=== PATIENT | female | born 1980 | race African-American/Black ===

== ENCOUNTER 2023-06-24 16:32 | Emergency (ER) | payer OTHER ==
[2023-06-24 16:49] VITALS: O2SAT 100
--- NOTE | 2023-06-24 17:25 | ED Physician Documentation ---
History of Present Illness - Stated complaint Stated Complaint: NECK PX - Chief complaint Chief Complaint: General - Additonal information Additional information: She is this is a 42-year-old female complaining of more than a year of intermit tent neck pain she states that occasionally she will have soreness in the right side of her neck into her right shoulder. Her partner has also noticed that she has had some soft tissue swelling in the right lateral neck and they wonder if this is connected. This is also been present for more than a year and has not grossly changed. She has no weakness or numbness no pain radiating past the shoulder. Also comes complains of intermittent heavy periods. She is not . She also complains of vaginal itching. The patient currently lives in [place], is here with her partner who lives on the [place], she is going to moving to would be at the end of the month. Review of Systems Musculoskeletal: reports: Neck pain Neurologic: denies: Focal weakness, Numbness PD PAST MEDICAL HISTORY - Past Medical History Past Medical History: No Other Past Medical History: miscarriage. - Past Surgical History Past Surgical History: No - Present Medications Home Medications: Ambulatory Orders Medication Instructions Recorded Confirmed No Known Home Medications 06/24/23 06/24/23 - Allergies Allergies/Adverse Reactions: Allergies Allergy/AdvReac Type Severity Reaction Status Date / Time Quinolones Allergy Itching Verified 06/24/23 17:09 - Social History Does the pt smoke?: No Smoking Status: Never smoker PD ED PE NORMAL - General General: Alert and oriented X 3 - HEENT HEENT: Other (She has no midline cervical spine tenderness. She has a mobile squishy soft tissue swelling near her right trapezius muscle but feels consist ent for a lipoma. This is nontender.) - Extremities Extremities: No deformity - Neuro Neuro: No motor deficit, No sensory deficit Results - Vitals Vitals: Vital Signs - 24 hr 06/24/23 16:42 Temperature 36.7 C Heart Rate 56 L Respiratory 16 Rate Blood Pressure 127/84 H O2 Saturation 100 PD Medical Decision Making - ED course ED course: Will do right now patient presents with longstanding neck pain. This appears to be musculoskeletal. She also has some soft tissue swelling which appears to be a lipoma. She wonders if these are related. Is certainly possible that her lipoma could be compressing some of her cervical nerves but her she is neurologically intact and has no indication for emergent neuroimaging today. She also has a litany of other complaints including occasional heavy periods and vaginal itching. These would be most appropriately managed by primary care physician. She is in the process of moving to [facility] to be with her partner from [place]. Distally happening at the end of the month. I will give her referrals for primary care locally. She will take ibuprofen in the meantime Departure - Departure Disposition: 01 Home, Self Care Clinical Impression: Cervicalgia Lipoma Qualifiers: Lipoma location: neck Qualified Code(s): D17.0 - Benign lipomatous neoplasm of skin and subcutaneous tissue of head, face and neck Instructions: ED Neck Pain No Trauma Comments: She is your neck pain is likely on the basis of eyestrain, worst-case scenario could be that this could be a pinched nerve or cervical disc herniation. At any rate you are stable for outpatient follow-up. Now that you are going to moved to the [place] we will give you a list of PCPs to follow-up with here. The swelling that you noticed is by all appearances, a benign fatty growth called a lipoma. Should this grow or become more worrisome more acutely we could do something more urgently with it otherwise this is also safe to follow-up with your primary care physician once he moved to the [place]. For the dysmenorrhea I recommend taking ibuprofen 600 mg every 6 hours as also help with your neck pain. And again, your primary care physician that we will refer you to to help with this problem as well. Forms: PCP List
[2023-06-24 17:50] VITALS: BP 122/82
== END 2023-06-24 17:46 | disposition home or self-care (01) ==
LOC: EDBD → ED 16:32
DX: M54.2 Cervicalgia (principal); D17.0 Benign lipomatous neoplasm of skin and subcutaneous tissue of head, face and neck
CPT/HCPCS: 99282; 99283

== ENCOUNTER 2023-06-29 08:00 | Outpatient (CLI) | payer OTHER ==
[2023-06-29 21:36] LABS: BACTERIAL VAGINOSIS DNA POSITIVE (NEGATIVE); CANDIDA GLABRATA DNA NEGATIVE (NEGATIVE); CANDIDA GROUP DNA POSITIVE (NEGATIVE); CANDIDA KRUSEI DNA NEGATIVE (NEGATIVE); TRICHOMONAS VAGINALIS DNA NEGATIVE (NEGATIVE)
== END 2023-06-29 23:59 | disposition home or self-care (01) ==
LOC: LAB.N 08:00
PROVIDERS: ATTEND Physician Assistant Medical
DX: L29.8 Other pruritus (principal)
CPT/HCPCS: 81514

== ENCOUNTER 2023-07-12 16:47 | Outpatient (CLI) | payer OTHER ==
--- NOTE | 2023-07-13 06:41 | Ultrasound Report ---
PROCEDURE: Pelvic w/Transvaginal INDICATIONS: LOWER ABD PAIN TECHNIQUE: Real-time scanning was performed of the pelvic organs, with image documentation. Additional endovagi nal scanning was necessary due to incomplete visualization of the adnexal and endometrial structures by transabdominal scanning. COMPARISON: None. FINDINGS: Uterus: Uterus is anteverted and at the upper limits of normal in size at 9.8 x 4.3 x 5.8 cm. The m yometrium is homogeneous. The endometrium measures 6.4 mm in combined thickness. There is a right a nterior subserosal focus of heterogeneous echogenicity measuring 4.0 x 2.9 x 3.7 cm. A right anterior intramural focus is present measuring 1.9 x 1.4 x 1.5 cm. Ovaries: The right ovary measures 4.7 x 2.2 x 4.2 cm, with a calculated ovarian volume of 23 cc. Th e left ovary measures 3.9 x 1.2 x 2.7 cm, with a calculated ovarian volume of 6.8 cc. Complex cysts a re present within the right ovary the largest measuring 2.3 cm. Other: No pathologic free abdominal or pelvic fluid. IMPRESSION: Uterine foci of heterogeneous echogenicity most suggestive of fibroids. Complex right ovarian cyst possibly representing involuting hemorrhagic cyst. Reviewed by: Consuelo Richardson MD on 07/13/2023 6:40 AM PDT Approved by: Consuelo Richardson MD on 07/13/2023 6:40 AM PDT Station ID: [id number]
== END 2023-07-12 16:48 | disposition home or self-care (01) ==
LOC: DI 16:47
PROVIDERS: ATTEND Physician Assistant Medical
DX: R93.89 Abnormal findings on diagnostic imaging of other specified body structures (principal); N83.201 Unspecified ovarian cyst, right side

== ENCOUNTER 2023-08-25 14:04 | Emergency (ER) | payer OTHER ==
[2023-08-25 14:38] VITALS: O2SAT 100
--- NOTE | 2023-08-25 15:00 | ED Physician Documentation ---
History of Present Illness - Stated complaint Stated Complaint: NECK PX/BACK PX/BODY PX - Chief complaint Chief Complaint: General - History obtained from History obtained from: Patient - Additonal information Additional information: She has chronic neck pain. Hurts every day. It is in the middle of the neck and radiating towards the posterior right shoulder. She has taken NSAIDs and Tylenol without relief. Never had any workup or physical therapy or anything like that for it. PD PAST MEDICAL HISTORY - Past Medical History Past Medical History: Yes Cardiovascular: None Respiratory: None Neuro: Headaches Endocrine/Autoimmune: None GI: None DONOR PROCESSOR: None : None HEENT: None Psych: None Musculoskeletal: Chronic back pain Derm: None - Past Surgical History Past Surgical History: No - Present Medications Home Medications: Ambulatory Orders Medication Instructions Recorded Confirmed Cyclobenzaprine [Flexeril] 10 mg PO TID PRN #20 tablet 08/25/23 - Allergies Allergies/Adverse Reactions: Allergies Allergy/AdvReac Type Severity Reaction Status Date / Time Quinolones Allergy Itching Verified 08/25/23 14:16 - Social History Does the pt smoke?: No Smoking Status: Never smoker Does the pt have substance abuse?: No - Immunizations Immunizations: Other immun not current - POLST Patient has POLST: No PD ED PE NORMAL - Vitals Vital signs reviewed: Yes - General General: Alert and oriented X 3, No acute distress - HEENT HEENT: PERRL, EOMI - Neck Neck: Supple, no meningeal sign, No bony TTP - Extremities Extremities: No deformity, No tenderness to palpate, Normal ROM s pain, Other (Normal equal bilateral [employer] strength, thumb extension, interosseous strength, and flexion extension at the wrist. 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 Relevant Findings:: Final report received, EMP independent interpretation of test PD Medical Decision Making - ED course ED course: She is presents with chronic neck pain. She is never been imaged so seems reasonable to do so today and had a CT scan which was unremarkable. He does seem muscular though and she was counseled on PCP follow-up with presumed referral for physical therapy and will start Flexeril. Departure - Departure Disposition: Home, Self Care Clinical Impression: Cervicalgia Condition: Good Record reviewed to determine appropriate education?: Yes Instructions: ED Neck Pain No Trauma Prescriptions: Cyclobenzaprine [Flexeril] 10 mg PO TID PRN #20 tablet PRN Reason: Spasms Comments: The CT scan of your neck was normal and given the location of your pain I do suspect it is muscular. Call your doctor to arrange a follow-up appointment, make the next available appointment. In the interim, return anytime if worse or if new symptoms develop. Forms: PCP List Discharge Date/Time: 08/25/23 15:50
[2023-08-25] MEDS: CYCLOBENZAPRINE 10 MG TABLET PO STA (15:03)
--- NOTE | 2023-08-25 15:41 | CT Report ---
PROCEDURE: Cervical Spine WO INDICATIONS: cervicalgia TECHNIQUE: Noncontrast 3 mm thick sections acquired from the skull base to the T4 level. Sagittal and coronal r eformats were then constructed. For radiation dose reduction, the following was used: automated exp osure control, adjustment of mA and/or kV according to patient size. COMPARISON: None. FINDINGS: Image quality: Excellent. Bones: No fractures or dislocations. Visualized superior ribs are intact. Soft tissues: Prevertebral soft tissues are normal in thickness. No paravertebral hematomas. No ap ical pneumothoraces. Subcentimeter left thyroid nodule. IMPRESSION: No osseous spinal canal or foraminal narrowing. Reviewed by: Dino Junior MD on 08/25/2023 2:40 PM AKJD Approved by: Dino Junior MD on 08/25/2023 2:40 PM AKJD Station ID: [id number]
[2023-08-25 15:52] VITALS: BP 112/88
== END 2023-08-25 15:50 | disposition home or self-care (01) ==
LOC: ED 14:04
DX: M54.2 Cervicalgia (principal); M25.511 Pain in right shoulder
CPT/HCPCS: 72125; 99284; A9270

== ENCOUNTER 2023-09-20 19:17 | Outpatient (CLI) | payer OTHER ==
--- NOTE | 2023-09-21 09:54 | Ultrasound Report ---
PROCEDURE: Soft Tissue Head or Neck INDICATIONS: MASS TECHNIQUE: Real-time scanning was performed of the neck, with image documentation. COMPARISON: None FINDINGS: Targeted ultrasound of the region of concern demonstrates a fat-containing, encapsulated mass measuri ng 3.0 x 1.4 x 2.9 cm. IMPRESSION: Ultrasound of the region of concern demonstrates a benign lipoma. Reviewed by: David Agarwal MD on 09/21/2023 9:52 AM PDT Approved by: David Agarwal MD on 09/21/2023 9:52 AM PDT Station ID: [id number]
== END 2023-09-20 19:18 | disposition home or self-care (01) ==
LOC: DI 19:17
PROVIDERS: ATTEND Nurse Practitioner Family
DX: D17.0 Benign lipomatous neoplasm of skin and subcutaneous tissue of head, face and neck (principal)

== ENCOUNTER 2023-11-26 08:00 | Outpatient (CLI) | payer OTHER ==
[2023-11-26 17:30] LABS: BILIRUBIN,URINE NEGATIVE (NEGATIVE); GLUCOSE, URINE (UA) NEGATIVE (NEGATIVE); KETONES,URINE (UA) 15 mg/dL (NEGATIVE); LEUKOCYTE ESTERASE, URINE NEGATIVE (NEGATIVE); NITRITE,URINE NEGATIVE (NEGATIVE); OCCULT BLOOD,URINE NEGATIVE (NEGATIVE); PH,URINE 5.5 PH (5.0-7.5); PROTEIN,URINE NEGATIVE (NEGATIVE); UROBILINOGEN,URINE 0.2 (NORMAL) E.U./dL (NORMAL)
[2023-11-26 17:35] LABS: CLARITY,URINE CLOUDY (CLEAR)
[2023-11-26 17:52] LABS: AMORPHOUS SEDIMENT,UR Marked /LPF; RBC,URINE 0-5 /HPF (0-5); SQUAMOUS EPITHELIAL CELL,UR MOD Squamous (<= Few); WBC,URINE 0-3 /HPF (0-5)
[2023-11-26 17:59] LABS: BACTERIA,URINE None Seen /HPF (None Seen)
== END 2023-11-26 23:59 | disposition home or self-care (01) ==
LOC: LAB.WC 08:00
PROVIDERS: ATTEND Obstetrics & Gynecology
DX: Z34.90 Encounter for supervision of normal pregnancy, unspecified, unspecified trimester (principal)
CPT/HCPCS: 81001; 87086

== ENCOUNTER 2023-12-05 08:00 | Outpatient (CLI) | payer OTHER ==
[2023-12-05 22:52] LABS: CHLAMYDIA TRACHOMATIS DNA NEGATIVE (NEGATIVE); NEISSERIA GONORRHOEAE DNA NEGATIVE (NEGATIVE); TRICHOMONAS VAGINALIS DNA NEGATIVE (NEGATIVE)
== END 2023-12-05 23:59 | disposition home or self-care (01) ==
LOC: LAB.WC 08:00
PROVIDERS: ATTEND Obstetrics & Gynecology
DX: Z11.3 Encounter for screening for infections with a predominantly sexual mode of transmission (principal)
CPT/HCPCS: 87491; 87591; 87661

== ENCOUNTER 2023-12-12 18:32 | Outpatient (CLI) | payer OTHER ==
--- NOTE | 2023-12-13 20:03 | Ultrasound Report ---
PROCEDURE: OB 1st Trimester INDICATIONS: POSITIVE TEST OUTSIDE/PRIOR DATING DATA: Last menstrual period (LMP): 09/25/2023. LMP-based estimated date of delivery (KAI): 07/01/2024. First dating scan (date and location): 12/12/2023. Estimated date of delivery (KAI) from first dating scan: 07/10/2024. TECHNIQUE: Real-time scanning was performed of the fetus and maternal pelvic organs with image docum entation. COMPARISON: None FINDINGS: Heart rate: 176 bpm. Embryo: Naselle-rump length measures 3.0 cm corresponding to a 9 week 6 day gestation. Other: Subchronic bleed measures 2.3 x 1.0 x 3.3 Measurement variability in dating: +/- 4 weeks by LMP, +/- 7 days by mean sac diameter (use before 6 weeks gestation if crown-rump length not able to be measured), +/- 5 days by crown-rump length (6-12 weeks gestation). Maternal organs: Left corpus luteum cyst. Uterine fibroids noted IMPRESSION: Single live intrauterine consistent with 9 week 6 day gestation. Subchorionic bleed Reviewed by: Yony Gonzales MD on 12/13/2023 7:02 PM LEA Approved by: Yony Gonzales MD on 12/13/2023 7:02 PM LEA Station ID: [id number]
== END 2023-12-12 18:33 | disposition home or self-care (01) ==
LOC: DI 18:32
PROVIDERS: ATTEND Obstetrics & Gynecology
DX: Z34.91 Encounter for supervision of normal pregnancy, unspecified, first trimester (principal)

== ENCOUNTER 2024-07-08 13:45 | Inpatient (IN) ==
[2024-07-08] MEDS ORDERED: hydrALAZINE INJ 20 MG/ML VIAL IVP PRN ×2 (14:28)
[2024-07-08] MEDS ORDERED: NIFEdipine 10 MG CAPSULE PO PRN (14:28)
[2024-07-08] MEDS ORDERED: CARBOPROST TROMETHAMINE 250 MCG/ML VIAL IM PRN (14:28)
[2024-07-08] MEDS ORDERED: LACTATED RINGERS 1,000 ML IV PRN (14:28)
[2024-07-08] MEDS ORDERED: LABETALOL 20 MG/4 ML SYRINGE IVP PRN ×3 (14:28)
[2024-07-08] MEDS ORDERED: lidocaine 1% 20 ML MDV ID PRN (14:28)
[2024-07-08] MEDS ORDERED: OXYTOCIN 10 UNIT/ML VIAL IM PRN (14:29)
[2024-07-08] MEDS ORDERED: ONDANSETRON ODT 4 MG TABLET TL PRN (14:29)
[2024-07-08] MEDS ORDERED: OXYTOCIN/SODIUM CHLORIDE 500 ML IV PRN (14:29)
[2024-07-08] MEDS ORDERED: METHYLERGONOVINE 0.2 MG/ML VIAL IM PRN (14:29)
[2024-07-08] MEDS ORDERED: miSOPROStoL 200 MCG TABLET BC PRN (14:29)
[2024-07-08] MEDS ORDERED: TRANEXAMIC ACID IN NACL 1,000 MG/100 ML BAG IV PRN (14:29)
[2024-07-08] MEDS ORDERED: SODIUM CHLORIDE FLUSH 0.9% 10 ML SYRINGE IVP PRN (14:29)
[2024-07-08] MEDS ORDERED: ONDANSETRON 4 MG/2 ML VIAL IVP PRN (14:29)
--- NOTE | 2024-07-08 14:48 | PHARMACY PROGRESS NOTE ---
Best Possible Medication History Admit Date and Time: 07/08/24 [id number] Home Medications Medication Instructions Recorded Confirmed Type No Known Home Medications 07/08/24 07/08/24 History Processed by: Pharmacy (Medication reconciliation completed by Corporate Responsibility OfficerSherri) Medications reviewed in ED?: No Medication History completed: Yes Patient Interview: Completed Secondary Source(s): Insurance records [facility] Statement: As the person ultimately responsible for medication therapy, providers are able to order a medication from an existing home medication list in [facility] via the "Reconcile Routine" prior to Confirmation of that medication by office support specialist. Such practice is discouraged except when the physician, in their clinical judgment, deems that a medical need exists for a medication without regard to previous use.
[2024-07-08 14:50] LABS: PARTIAL THROMBOPLASTIN TIME 20.8 secs (24.9-33.3)
[2024-07-08 14:52] LABS: ALBUMIN 3.5 g/dL (3.2-5.5); ALBUMIN/GLOBULIN RATIO 1.1 (1.0-2.2); BILIRUBIN,TOTAL 0.3 mg/dL (0.2-1.0); CALCIUM 9.4 mg/dL (8.5-10.3); CREATININE 0.9 mg/dL (0.6-1.3); POTASSIUM 4.1 mmol/L (3.5-4.5); TOTAL PROTEIN 6.8 g/dL (6.4-8.9)
[2024-07-08 14:55] LABS: INR 0.9 (0.8-1.2); PT - PROTHROMBIN TIME 10.3 secs (9.9-12.6)
[2024-07-08 15:10] LABS: BASOPHILS % (AUTO) 0.3 %; EOSINOPHILS % (AUTO) 0.4 %; HCT - HEMATOCRIT 35.3 % (37.0-47.0); HGB - HEMOGLOBIN 11.2 g/dL (12.0-16.0); LYMPHOCYTES % (AUTO) 19.9 %; MEAN CORPUSCULAR HEMOGLOBIN 24.3 pg (27.0-31.0); MEAN CORPUSCULAR HGB CONC 31.7 g/dL (32.0-36.0); MEAN CORPUSCULAR VOLUME 76.7 fL (81.0-99.0); MONOCYTES % (AUTO) 10.2 %; NEUTROPHILS % (AUTO) 68.8 %; RED CELL DISTRIBUTION WIDTH 17.2 % (12.0-15.0); WHITE BLOOD COUNT 7.4 x10^3/uL (4.8-10.8)
[2024-07-08 16:08] LABS: PLATELET ESTIMATE, MANUAL DECREASED (<130,000) (NORMAL); PLATELET MORPHOLOGY 2+ LARGE PLATELETS (NORMAL); RBC MORPHOLOGY (MULTIPLE) NORMAL APPEARANCE (NORMAL)
[2024-07-08 16:09] LABS: ABNORMAL LYMPHS % (MANUAL) 0 %; BAND NEUTROPHILS % (MANUAL) 0 %; DIFFERENTIAL COMMENT MANUAL DIFFERENTIAL; EOSINOPHILS # (MANUAL) 0.1 10^3/uL (0-0.7); LYMPHOCYTES # (MANUAL) 1.6 10^3/uL (1.5-3.5); LYMPHOCYTES % (MANUAL) 22 %; MONOCYTES # (MANUAL) 0.2 10^3/uL (0.0-1.0); NEUTROPHILS # (MANUAL) 5.4 10^3/uL (1.5-6.6)
[2024-07-08 16:19] LABS: CREATININE,URINE 75.4 mg/dL; PROTEIN/CREATININE RATIO,URINE 0.5 (<=0.2)
--- NOTE | 2024-07-08 21:32 | HISTORY & PHYSICAL EXAMINATION ---
Admit History Visit Reason Visit Reason: Other (Induction of labor) Smoking Status: Never smoker Other Maternal History Other Maternal History: HPI: Esperanza is a 43 yo at 39w5d who is admitted for IOL in the setting of AMA. Reports overall feeling well today. She reports very irregular contractions, denies loss of fluid, vaginal bleeding. Reports good movement. She denies headache, vision changes, upper abdominal pain. monitoring form, copied from record: LMP: 09/25/2023 KAI by LMP: 07/01/2024 US: 12/12/2023 @ 9+6 NOT c/w LMP FINAL KAI: 07/10/2024 by US Problems: Cervical Incompetence: Delivery at [facility] at 20 weeks. Cervical shortening prolapsed membranes, developed chorio and then PPROM. Labor augmented with misoprstol, placental path confirmed chorio. - s/p Kat cerclage on 01/13; Removed at 36 weeks. AMA: -Aspirin to start between 12-16 weeks. - [id number] neg, female - [facility] recommmends weekly NST/BPP @ 36wk, ordered. Thrombocytopenia - Plt 88 on 01/01/25 -> 84 on 05/04/24. Repeat ordered 05/21. Pre- Weight:197.4 BMI: 35.66 Blood type: AB+ Rh: + Antibody: ordered 05/06 CBC: PLT 88 HCT 32.6 HGB 10.6 RUB: 05/04 immune VZV: 05/04 NOT immune HBsA/10 neg HepC: pending RPR/AB-EIA: HIV: 05/04 NR PAP:09/28/22 normal GC/CT: Negative HSV:denies in self and partner Genetic testing: Ordered 12/03 Covid: vaccinated RSV 05/21/24 mls FAS: Feb. 3 at [facility] ([facility]) EFW 55%tile. Placenta posterior. Prominent maternal uterine vasculature vs placental venous sinus extending to internal os. Noted. Normal cervical length. Cerclage in Situ. Anterior right lateral exophytic fibroid (size not given) Growth US 04/21/24 @ 28w4d EFW 47%tile, posterior placenta, normal VALERIA. No vasa previa seen. 50gm OGCT: 128 3HR GTT: TDAP:04/23 Breast Pump:04/23 3rd trimester CBC: 10.9/34.0 84 RPR: NR GBS: Negative at MFM Delivery plan: IOL scheduled for 07/08 at 8am Contraception: declines PE: Vitals signs reviewed in [facility] Gen: NAD CV: RRR Resp: non labored respirations Abd: gravid, non tender. EFW 3600g Ext: trace pedal edema, no evidence of DVT SVE: 2/70/-2 We discussec placement of cook balloon for cervical ripening, she did agree to proceed. Speculum was used to visualize cervix and cook balloon placed, 60/60, without difficulty. Speculum removed. She did tolerate very well. Bedside US: cephalic presentation confirmed monitoring: FHTs: 130s bpm baseline, + accel, mod variability, intermittent late decelerations [place]: irregular FHTs: Cat 2 Labs: CBC, CMP, T&S, PT, PTT reviewed. Platelet count was reviewed with pathologist, unable to provide exact count but estimates approximately at 100,000. A/P: Esperanza is a 43 yo at 39w5d who is admitted for IOL: - AMA - Thrombocytopenia - Preeclampsia without severe features - GBS neg - Varicella nonimmune - IOL started with cook balloon, plan to remove after 12 hours. - Platelet count in current has ranged from 76-88. Lab was unable to obtain automated count on admission, but platelets estimated to be 100,000 on manual count. Discussed with anesthesia, currently would be a candidate for neuraxial anesthesia. Platelets ordered in case of need for transfusion. I discussed with Esperanza that if platelets were to drop below 80,000, may not be a candidate for neuraxial anesthesia and in the case of delivery, would require intubation. Expressed understanding. At this time, undecided about epidural. - BPs currently normal to mild range. Asymptomatic for preeclampsia. Protein:creatinine ratio elevated. Remainder of preeclampsia labs are currently normal range (with exception of platelets as noted above). Will plan to repeat labs tomorrow. Maureen Xiong MD HPI Current : Vital Signs Temperature 98.2 F 07/08/24 13:53 Pulse Rate 59 L 07/08/24 13:53 Respiratory Rate 17 07/08/24 13:53 Blood Pressure 142/86 H 07/08/24 13:53 Meds/Allgy Home Medications Ambulatory Orders Medication Instructions Recorded Confirmed No Known Home Medications 07/08/24 07/08/24 Allergies Allergies Allergy/AdvReac Type Severity Reaction Status Date / Time Quinolones Allergy Itching Verified 07/02/24 12:59 PFSH Active Problems All Active Problems (Updated 05/21/24 @ 12:48 by Maureen Xiong MD) Advanced maternal age (AMA), 40 years or greater (Acute) Alpha thalassemia (Chronic) Anemia affecting (Acute) Cervical cerclage suture present (Acute) Cervical incompetence affecting management of mother, antepartum (Acute) Elderly multigravida (Acute) Low ferritin level (Acute) Microcytosis (Acute) Sickle cell trait (Chronic) Supervision of high risk in third trimester (Acute) Thrombocytopenia (Acute) Thrombocytopenia affecting (Acute) Medical History Medical History (Updated 05/21/24 @ 12:48 by Maureen Xiong MD) Miscarriage at 8 to 28 weeks gestation Surgical History Surgical History (Updated 05/06/24 @ 15:34 by Vashti Carey MD) History of cervical cerclage Family History Family History (Updated 01/08/24 @ 09:52 by Umm Calvert LPN) Sister High blood pressure Mother High blood pressure Social History Social History Smoking Status: Never smoker Do you vape?: No Relationship: Do you feel safe in your home environment?: Yes Suffered physical, verbal, emotional, or financial abuse?: No POLST Patient has POLST: No Physical Abdominal Exam Vital Signs: Temp Pulse Resp BP 98.2 F 59 L 17 142/86 H 07/08/24 13:53 07/08/24 13:53 07/08/24 13:53 07/08/24 13:53 Plan for Labor Plan For Labor I expect patient to be DC'd or transferred within 96 hours.: Yes Conclusion/Plan Lab Results 07/08/24 16:39 07/08/24 14:19
[2024-07-08] MEDS: SODIUM CHLORIDE FLUSH 0.9% 10 ML SYRINGE IVP SCH (22:00)
[2024-07-08] MEDS ORDERED: fentaNYL 100 MCG/2 ML VIAL IVP PRN (22:15)
--- NOTE | 2024-07-08 22:41 | ANESTHESIA PROCEDURE NOTE ---
Pre-Anesthesia VS, & Labs Diagnosis Surgical Diagnosis:: 39/4 weeks AMA for IOL, hx thromocytopenia Procedure Procedure: Discussed the options of labor epidural or spinal anesthetic for section, consent not signed Vitals Vital Signs: Temp Pulse Resp BP 36.8 C 59 L 17 142/86 H 07/08/24 13:53 07/08/24 13:53 07/08/24 13:53 07/08/24 13:53 Height (in): 5 ft 3 in Weight (kg): 97 kg Body Mass Index: 37.8 BMI Classification: Obese NPO Last Fluid Intake: clears Is Patient ?: Yes Estimated Due Date:: 07/08/24 Lab Results Current Lab Results: Laboratory Tests 07/08/24 16:39: Plt Count 07/08/24 15:00: WBC 7.4, RBC 4.60, Hgb 11.2 L, Hct 35.3 L, MCV 76.7 L, MCH 24.3 L, MCHC 31.7 L, RDW 17.2 H, Plt Count , Neut # (Auto) Not Reportable, Lymph # (Auto) Not Reportable, [place] # (Auto) Not Reportable, Eos # (Auto) Not Reportable, Baso # (Auto) Not Reportable, Absolute Nucleated RBC Not Reportable, Total Counted 100, Band Neuts % (Manual) 0, Abnorm Lymph % (Manual) 0, Nucleated RBC % Not Reportable, Neutrophils # (Manual) 5.4, Lymphocytes # (Manual) 1.6, Monocytes # (Manual) 0.2, Eosinophils # (Manual) 0.1, Basophils # (Manual) 0.0, Differential Comment MANUAL DIFFERENTIAL, Platelet Estimate DECREASED (<130,000), Platelet Morphology 2+ LARGE PLATELETS, RBC Morph Micro Appear NORMAL APPEARANCE 07/08/24 14:19: PT 10.3, INR 0.9, APTT 20.8 L, Sodium 136, Potassium 4.1, Chloride 106, Carbon Dioxide 24, Anion Gap 6.0, BUN 11, Creatinine 0.9, E stimated GFR (MDRD) 83 L, Glucose 92, Calcium 9.4, Total Bilirubin 0.3, AST 17, ALT 6 L, Alkaline Phosphatase 127 H, Total Protein 6.8, Albumin 3.5, Globulin 3.3, Albumin/Globulin Ratio 1.1, Blood Type AB POSITIVE, Antibody Screen NEGATIVE Lab results reviewed: Yes 07/08/24 16:39 07/08/24 14:19 Meds/Allgy Home Medications Ambulatory Orders Medication Instructions Recorded Confirmed No Known Home Medications 07/08/24 07/08/24 Allergies Allergies Allergy/AdvReac Type Severity Reaction Status Date / Time Quinolones Allergy Itching Verified 07/02/24 12:59 PFSH Active Problems All Active Problems Thrombocytopenia affecting (Acute) Supervision of high risk in third trimester (Acute) Anemia affecting (Acute) Alpha thalassemia (Chronic) Sickle cell trait (Chronic) Thrombocytopenia (Acute) Low ferritin level (Acute) Microcytosis (Acute) Advanced maternal age (AMA), 40 years or greater (Acute) Elderly multigravida (Acute) Cervical cerclage suture present (Acute) Cervical incompetence affecting management of mother, antepartum (Acute) Medical History Medical History Miscarriage at 8 to 28 weeks gestation Surgical History Surgical History History of cervical cerclage Family History Family History Sister High blood pressure Mother High blood pressure Social History Social History Smoking Status: Never smoker Do you vape?: No Relationship: Do you feel safe in your home environment?: Yes Suffered physical, verbal, emotional, or financial abuse?: No POLST Patient has POLST: No Results Other Other Results/Comments: CBC drawn today was manually counted by lab and was estimated to be over 100 Anesthesia Exam (Expanded) Exam General: Moderate distress Dental: WNL Mouth Openin Fingerbreadth Neck Mobility: Normal Mallampati classification: II Thyromental Distance: 4-6 cm Plan Plan Anesthesia Type: Spinal and Epidural (discussed choices around pain control for labor, as well as options for section if needed) Consent for Procedure(s) Verified and Reviewed: No Code Status: Attempt Resuscitation ASA Classification ASA classification: 2-Mild systemic disease Is this case an emergency?: No
[2024-07-08] MEDS: diphenhydrAMINE 25 MG CAPSULE PO PRN (22:47)
[2024-07-08] MEDS: ACETAMINOPHEN 325 MG TABLET PO PRN (22:47)
[2024-07-09] MEDS: LACTATED RINGERS 1,000 ML IV PRN (11:57)
[2024-07-09] MEDS: OXYTOCIN/SODIUM CHLORIDE 500 ML IV SCH (11:58)
--- NOTE | 2024-07-09 16:09 | PROVIDER PROGRESS NOTE ---
Labor Progress Note Uterine Monitoring Uterine Monitoring Mode: positive External toco Contraction Frequency (min/apart): q5 Contraction Intensity: positive Mild to moderate Monitoring Monitor Mode: positive External ultrasound Heart Rate Variability: positive Moderate (6-25 bmp) Accelerations: positive Present, 15x15 Strip Review: positive Category I Vaginal Exam Dilation (in cm): unable to reach cervix. too high Labor Progress Note Labor Progress Note/Additional Text: Balloon removed at 9 am. At that time she was 3-4. I just got to the edge of her cervix. vertex was very high and she was very uncomfortable with exam. she was jamey somewhat painfully. took a shower and then pitocin started about noon. now at 7 mu/min. contractions about q5 and less painful than before. unable to reach cervix so unable to break water. Encouraged her to go for a walk again. will recheck labs.
[2024-07-09 16:41] LABS: ALBUMIN 3.5 g/dL (3.2-5.5); ALBUMIN/GLOBULIN RATIO 1.2 (1.0-2.2); BILIRUBIN,TOTAL 0.3 mg/dL (0.2-1.0); CALCIUM 9.3 mg/dL (8.5-10.3); CREATININE 0.8 mg/dL (0.6-1.3); POTASSIUM 3.8 mmol/L (3.5-4.5); TOTAL PROTEIN 6.5 g/dL (6.4-8.9); URIC ACID 6.3 mg/dL (2.3-6.6)
--- NOTE | 2024-07-09 19:12 | PROVIDER PROGRESS NOTE ---
Progress Note Progress Note Progress Note: just discussed platelet count with Ksenia in lab. unable to count her platelets on their machine and get a number. Looks same as yesterday. counts are about 100-130 manually. Lab MD pathologist involved yesterday and talked with Dr. Merida. Esperanza's platelets are very large and that is likely why they can not count them. Large platelets are expected to work better, not less well per the lab personel. We did get some platelets to have on hand just in case.
--- NOTE | 2024-07-09 21:52 | PROVIDER PROGRESS NOTE ---
Labor Progress Note Uterine Monitoring Uterine Monitoring Mode: positive External toco Contraction Frequency (min/apart): q4 Contraction Intensity: positive Mild to moderate Monitoring Monitor Mode: positive External ultrasound Heart Rate Variability: positive Moderate (6-25 bmp) Decelerations: positive None Strip Review: positive Category I Vaginal Exam Dilation (in cm): 3-4 Effacement (%): 60 Station: -3 Cervical Position: Posterior Labor Progress Note Labor Progress Note/Additional Text: pitocin up to 15 and still not in labor at all, although pretty painful with contractions. still very high and hard to examine. really does not want epidural. Apparently many family members with back pain after. discussed options. recommended plan and they agree. Stop pitocin as not really making her labor come. hopefully will slow contractions enough that we can give miso. She did not have that last night. She did not sleep last night as she was very uncomfortable with catheter. does meet bp criteria for PreE with p/c ratio of 0.5. no headache. other labs rechecked and normal. Platelets by manual count are over 100. bps creeping up. likely a bit fluid overloaded with LR with pitocin. this is stopped now. will give one dose of 10 mg nifepidine. pulse is 60 or less so not labetolol. BPs have not been in severe range. EXcept one when lots of visitors were present. low platelet count has been her entire . maybe her very large platelets have to do with her abnormal hemoglobin genetic differences. sickle cell trait, alpha thal one gene deletion. GBS neg
[2024-07-09] MEDS: NIFEdipine 10 MG CAPSULE PO ONE (21:56)
--- NOTE | 2024-07-09 22:34 | PROVIDER PROGRESS NOTE ---
Progress Note Progress Note Progress Note: tc from RN with decel. gave nifedipine 10 mg po for elevated bps about 20 min before. bp 135/72 at time of decel. now better. patient still feeling painful contractions. seems better now. RN showed me a picture of similar decel at 3:20 am. In between baby has looked pretty perfect.
--- NOTE | 2024-07-09 23:53 | PROVIDER PROGRESS NOTE ---
Progress Note Progress Note Progress Note: still with quite painful contractions too much for miso. and not with her big decel. will restart pitocin when patient is ready. ok if she wants to rest of a bit, but not more than a couple hours as preE and need to keep moving toward delivery.
--- NOTE | 2024-07-10 04:05 | PROVIDER PROGRESS NOTE ---
Progress Note Progress Note Progress Note: reviewed tracing and bp. seems stable. jamey more.
--- NOTE | 2024-07-10 05:35 | PROVIDER PROGRESS NOTE ---
Progress Note Progress Note Progress Note: patient asleep. Just had another decel. similar baseline now as before, maybe 5 bpm lower. pitocin turned off again. Was at 7. will leave off now until day shift. In am, will offer c section as not in labor.
[2024-07-10 08:50] LABS: BASOPHILS % (AUTO) 0.3 %; EOSINOPHILS % (AUTO) 0.5 %; HCT - HEMATOCRIT 31.9 % (37.0-47.0); HGB - HEMOGLOBIN 10.4 g/dL (12.0-16.0); LYMPHOCYTES # (AUTO) 1.5 10^3/uL (1.5-3.5); LYMPHOCYTES % (AUTO) 20.4 %; MEAN CORPUSCULAR HEMOGLOBIN 24.6 pg (27.0-31.0); MEAN CORPUSCULAR HGB CONC 32.6 g/dL (32.0-36.0); MEAN CORPUSCULAR VOLUME 75.4 fL (81.0-99.0); MONOCYTES # (AUTO) 0.7 10^3/uL (0.0-1.0); MONOCYTES % (AUTO) 9.1 %; NEUTROPHILS # (AUTO) 5.1 10^3/uL (1.5-6.6); NEUTROPHILS % (AUTO) 69.2 %; RED BLOOD COUNT 4.23 10^6/uL (4.20-5.40); RED CELL DISTRIBUTION WIDTH 17.2 % (12.0-15.0)
[2024-07-10 08:52] LABS: SLIDE REVIEW? Indicated
[2024-07-10] MEDS: fentaNYL 100 MCG/2 ML VIAL IVP PRN (09:16)
--- NOTE | 2024-07-10 10:03 | PROVIDER PROGRESS NOTE ---
Labor Progress Note Uterine Monitoring Uterine Monitoring Mode: positive External toco Contraction Frequency (min/apart): Q 10 min Contraction Intensity: positive Mild to moderate Uterine Resting Tone: positive Soft Monitoring Monitor Mode: positive External ultrasound Heart Rate Baseline: 125 Heart Rate Variability: positive Minimal (0-5 bpm) (Previously moderate; now minimal s/p Fentanyl dose) Accelerations: positive Present, 15x15 Decelerations: positive None Strip Review: positive Category I Vaginal Exam Dilation (in cm): 3 Effacement (%): 50 Station: -3 Labor Progress Note Labor Progress Note/Additional Text: S/ Care assumed from Dr. Carey at 0800. History and labor course reviewed. Patient feeling contractions but able to rest through them. She was given Fentanyl 100 mcg to better tolerate cervical exam, and now she feels dizzy. O/ AFEB, VSS with occ BP 140/80s FHT/[place] as above; hx f 3 notable prolonged decels, and Pitocin stopped early this morning for third decel; currently cat 1 Cvx 3/50/-3 at 0940; unchanged from last approx 12 hrs ago Labs: Platelets 4/17 reported in range of 90-120s A/P IOL for AMA, now 40+0 wks. Additional complications include thrombocytopenia, preeclampsia without severe features (though some near-severe BPs and received one dose of nifedipine 10 mg last night), and hx of cervical incompetence (hx second trimester delivery and Kat cerclage this ). - Pitocin restarted at 0810. Cont to titrate per protocol. - Discussed with couple that if another decel occurs, requiring cessation of Pitocin, will recommend delivery for intolerance of labor. If doing well with Pitocin, plan for repeat cervical exam at least 2-3 hrs after regular contractions achieved to see if able to perform amniotomy. Discussed that Pitocin + amniotomy are most effective for labor progress. They verbalized understanding and agreement with this plan. - CBC obtained this morning to obtain repeat PLT count. If indicated, will likely require general anesthesia.
[2024-07-10 10:14] LABS: WHITE BLOOD COUNT 7.4 x10^3/uL (4.8-10.8)
[2024-07-10 10:28] LABS: PLATELET ESTIMATE, MANUAL DECREASED (<130,000) (NORMAL); WBC MORPHOLOGY (MULTIPLE) NORMAL APPEARANCE (NORMAL)
[2024-07-10 10:30] LABS: DIFFERENTIAL COMMENT MANUAL=AUTO DIFF; PLATELET MORPHOLOGY 3+ LARGE P (NORMAL)
--- NOTE | 2024-07-10 22:21 | PROVIDER PROGRESS NOTE ---
Labor Progress Note Uterine Monitoring Uterine Monitoring Mode: positive External toco Contraction Frequency (min/apart): Q 2-3 min with Pitocin at 18 mU/min Contraction Intensity: positive Moderate to strong Uterine Resting Tone: positive Soft Monitoring Monitor Mode: positive External ultrasound Heart Rate Baseline: 130 Heart Rate Variability: positive Moderate (6-25 bmp) Accelerations: positive Present, 15x15 Decelerations: positive Early, Late and Intermittent (<50% x20 min) Strip Review: positive Category II Vaginal Exam Dilation (in cm): 4-5 Effacement (%): 80 Station: -2 Labor Progress Note Labor Progress Note/Additional Text: S/ Patient has been jamey painfully since approximately 1400. Cervical exam at ~1630 noted some change in dilation - now 4 cm/60/-3. Amniotomy not performed due to persistent high station. Patient then reported gush of fluid at 2025, reported by nursing to have thin med. O/ AFEB, VSS with occ BP 150s/80s FHT/[place] as above; hx of 3 notable prolonged decels (2-3 min to kirsten 60s) with no decels since my assumption of care this morning; currently cat 2 due to occ late decels but overall reassuring Cvx 4-5/80/-2 at 2025 following SROM Labs: Platelets 07/10 reported in range of 90-120s A/P IOL for AMA, now 40+0 wks. Additional complications include thrombocytopenia, preeclampsia without severe features (though some near-severe BPs and received one dose of nifedipine 10 mg last night), hx of cervical incompetence (hx second trimester delivery and Kat cerclage this ), and hx carrier of sickle cell and alpha thal. - Cont to titrate Pitocin per protocol. - Pt declines epidural. Cont Fentanyl IV prn until 6-7 cm dilation; max 4 doses. - Minimize cervical exams now s/p SROM. Plan for next cervical check prn pain/pressure or FHT changes. - Preeclampsia: BP increasing a bit, likely secondary to pain. Will administer Procardia XL 30 mg now. - Anticipate .
[2024-07-10] MEDS: NIFEdipine ER 30 MG TABLET PO SCH (22:39)
[2024-07-11] MEDS ORDERED: LIDOCAINE 2%-EPI 1:100000 20 ML MDV ONE ×2 (01:10→07:25)
[2024-07-11] MEDS ORDERED: ROPIVACAINE 0.2% 200 MG/100 ML BAG EP ONE (01:11)
[2024-07-11] MEDS ORDERED: NALBUPHINE 10 MG/ML AMP IVP PRN (02:19)
[2024-07-11] MEDS ORDERED: diphenhydrAMINE INJ 50 MG/ML VIAL IVP PRN (02:19)
[2024-07-11] MEDS ORDERED: NALOXONE 0.4 MG/ML VIAL IVP PRN ×3 (02:19→09:35)
[2024-07-11] MEDS ORDERED: LACTATED RINGERS 500 ML IV ONE (02:19)
[2024-07-11] MEDS ORDERED: ONDANSETRON 4 MG/2 ML VIAL IVP PRN ×2 (02:19→08:52)
[2024-07-11] MEDS ORDERED: METOCLOPRAMIDE 10 MG/2 ML VIAL IVP PRN ×2 (02:19→08:52)
[2024-07-11] MEDS ORDERED: ROPIVACAINE 0.2% 200 MG/100 ML BAG EP PRN (02:19)
[2024-07-11] MEDS ORDERED: LIDOCAINE-MPF 1% 5 ML VIAL ONE (02:36)
[2024-07-11] MEDS: ePHEDrine 50 MG/ML VIAL IVP PRN (03:20)
[2024-07-11] MEDS ORDERED: OXYTOCIN 10 UNIT/ML VIAL ONE (07:27)
[2024-07-11] MEDS ORDERED: AZITHROMYCIN INJ 500 MG in SODIUM CHLORIDE 0.9% 250 ML IV ONE (07:35)
[2024-07-11] MEDS ORDERED: ceFAZolin (2G) 2 GM in SODIUM CHLORIDE 0.9% MINIBAG 100 ML IV ONE (07:35)
[2024-07-11] MEDS ORDERED: SODIUM CHLORIDE 0.9% 10 ML VIAL ONE (07:38)
[2024-07-11] MEDS ORDERED: ePHEDrine 50 MG/ML VIAL IVP ONE (07:38)
[2024-07-11] MEDS ORDERED: PHENYLEPHRINE HCL 0.5 MG/5 ML AMPULE ONE (07:39)
--- NOTE | 2024-07-11 07:46 | PROVIDER PROGRESS NOTE ---
Labor Progress Note Uterine Monitoring Uterine Monitoring Mode: positive External toco Contraction Frequency (min/apart): Q 3-5 min, off Pitocin currently Contraction Intensity: positive Mild to moderate Monitoring Monitor Mode: positive External ultrasound Heart Rate Baseline: 120s Heart Rate Variability: positive Moderate (6-25 bmp) Accelerations: positive Present, 15x15 Decelerations: positive Late and Prolonged (>2x10 min) Strip Review: positive Category II Vaginal Exam Dilation (in cm): 5 Effacement (%): 70 Station: -2 Labor Progress Note Labor Progress Note/Additional Text: S/ Overnight events significant for placement of an epidural for pain mgmt. Shortly thereafter, maternal BP was lower than usual (100-120s SBP), and FHT notable for late decels and diminished variability. She was given fluid bolus of 300 ml (conservative due to preE) and then later 3 doses of ephedrine, which were helpful. Lates resolved with BP mgmt. Additionally, she has had now 3 more sudden, prolonged decels to 60's. Pitocin was stopped very early this morning, and FHT has not been reassuring enough to restart. O/ AFEB, VS notable for low/normal BP overnight, now back to 150/90s FHT/[place] as above; hx of now 6 notable prolonged decels (2-3 min to kirsten 60s); currently cat 1-2 due to occ late decels but overall reassuring Cvx 5/80/-2 per RN exam approx 0600 Labs: Platelets 07/10 reported in range of 90-120s A/P IOL for AMA, now 40+1 wks. Additional complications include thrombocytope tramaine (preceded ), preeclampsia without severe features (though some near-severe BPs and received one dose of nifedipine 10 mg 07/09 and nifedipine XR 30 mg last night), hx of cervical incompetence (hx second trimester delivery and Kat cerclage this ), and hx carrier of sickle cell and alpha thal. - Recommend delivery for intolerance of labor. - Patient and spouse counseled re: surgery expectations and risks (bleeding, infection, injury to internal organs, and anesthesia risks). Consent reviewed and signed. - PPH risk high due to platelet function and labor/Pitocin: Type and crossmatch x 2 units; platelet unit on hold in-house - Proceed to OR once team has been assembled (anticipating 0800 start)
[2024-07-11] MEDS ORDERED: DEXMEDETOMIDINE 200 MCG/2 ML VIAL ONE (07:51)
[2024-07-11] MEDS: CITRIC ACID/SODIUM CITRATE 15 ML UDC PO ONE (07:52)
[2024-07-11] MEDS ORDERED: ONDANSETRON 4 MG/2 ML VIAL ONE (08:33)
[2024-07-11] MEDS ORDERED: ACETAMINOPHEN 1,000 MG/100 ML 1,000 MG/100 ML BAG IV ONE (08:43)
[2024-07-11] MEDS ORDERED: ePHEDrine 50 MG/ML VIAL IVP PRN (08:52)
[2024-07-11] MEDS ORDERED: ATROPINE ABBOJECT 1 MG/10 ML SYRINGE IVP PRN (08:52)
[2024-07-11] MEDS ORDERED: HYDROmorphone 0.5 MG/0.5 ML SYRINGE IVP PRN (08:52)
[2024-07-11] MEDS ORDERED: fentaNYL 100 MCG/2 ML VIAL IVP PRN (08:52)
[2024-07-11] MEDS ORDERED: MORPHINE 2 MG/ML CARPUJECT IVP PRN (08:52)
[2024-07-11] MEDS ORDERED: TRANEXAMIC ACID 1,000 MG/10 ML VIAL ONE (08:53)
[2024-07-11] MEDS ORDERED: LACTATED RINGERS 1,000 ML IV SCH (09:00)
[2024-07-11] MEDS ORDERED: KETOROLAC 30 MG/ML VIAL ONE (09:18)
[2024-07-11] MEDS ORDERED: hydrALAZINE INJ 20 MG/ML VIAL IVP PRN ×2 (09:35)
[2024-07-11] MEDS ORDERED: OXYTOCIN/SODIUM CHLORIDE 500 ML IV PRN (09:35)
[2024-07-11] MEDS ORDERED: LABETALOL 20 MG/4 ML SYRINGE IVP PRN ×3 (09:35)
[2024-07-11] MEDS ORDERED: NIFEdipine 10 MG CAPSULE PO PRN (09:35)
[2024-07-11] MEDS ORDERED: OXYTOCIN 10 UNIT/ML VIAL IM PRN (09:41)
[2024-07-11] MEDS ORDERED: TRANEXAMIC ACID IN NACL 1,000 MG/100 ML BAG IV PRN (09:41)
[2024-07-11] MEDS ORDERED: ACETAMINOPHEN 500 MG TABLET PO SCH (10:00)
[2024-07-11] MEDS: oxyCODONE 5 MG TABLET PO PRN (11:11)
--- NOTE | 2024-07-11 11:17 | OPERATIVE REPORT ---
Operative Report General Admit Date: 07/08/24 Procedure Data: Operation Date: 07/11/24 08:00 Proposed Procedures p Section(Not Applicable) - Berenice Alonzo MD Actual Procedures p Section(Not Applicable) - Berenice Alonzo MD Pre-Op Diagnosis: intolerance of labor Anesthesia Type Spinal Case Staff Anesthesia Provider: Mitch Verma Assisting Provider: Vashti Carey Case Times Into Recovery: 07/11/24 09:31 Procedure Start: 07/11/24 08:31 Procedure End: 07/11/24 09:25 Time out: 07/11/24 08:31 Pre-Op Diagnosis: intolerance of labor, pre-eclampsia, thrombocytopenia Post Op Diagnosis: Same, now s/p Procedure Note Intake, IV Amount (ml): 1,000 Estimated Blood Loss (ml): 590 Output, Urine Amount (ml): 300 Pathology: None Indications: intolerance of labor: episodic but frequent prolonged decels precluding labor augmentation Complications: None Other Other Information/Narrative: DATE OF PROCEDURE: 07/11/2024 Surgeon: Berenice Alonzo MD Clinical Training Specialist: MD Dr. Aurelio Rocha was necessary as an investment sales assistant for the entire procedure for adequate retraction and visualization, to shorten operative time, to assist with delivery of the infant, and to lower the risk of surgical injury Pre-Op Diagnosis: intolerance of labor, pre-eclampsia, thrombocytopenia, advanced maternal age, sickle cell trait, alpha thal trait Post-Op Diagnosis: same now s/p delivery Procedures: Primary low transverse delivery Findings: Doptones following spinal noted to be in the 80's - surgery started expeditiously thereafter. Infant in cephalic presentation with thin meconium- stained amniotic fluid. weight was 7 lb 2 ox, and Apgars were 8/9. Large, approximately 6-7 cm subserosal FIGO class 6) was present at the right cornu, positioned at the cornual region of the right fallopian tube. Thin adhesions adhesions were present overlying the fibroid and uterine serosa, as well as a thicker adhesion from the right lateral aspect of the bladder to the anterior fibroid. No other fibroids were noted. Otherwise normal appearing uterus/tubes/ovaries. Specimens: None Anesthesia Technique: Spinal Estimated Blood Loss: 590 ml Blood Replacement: None Fluid Replacement: 1000 ml Drains: holguin, drained 300 cc clear yellow urine Complications: none Condition: stable Procedure in Detail: The patient was taken to the operating room where less-functional labor epidural was removed and spinal anesthesia was placed. Holguin catheter was placed. After post-spinal doptones were noted to be in the 80s without quick return to baseline (1-2 min), she was prepared and draped in sterile fashion in the dorsal supine position with a leftward tilt. 2g Ancef and 500 mg Azithromycin were given for prophylaxis. A Pfannenstiel skin incision was made with the scalpel, then dissection continued with Bovie cautery to help minimize blood loss given her thrombocytopenia and large platelets. This incision was carried down to the fascia. The fascia was incised in the midline and the incision was extended with Mayos. The superior aspect of the fascial incision was grasped with two Tatianna clamps, elevated, and the underlying rectus muscles dissected off both bluntly and with the aid of the cautery. The inferior aspect of the fascial incision was grasped with two Tatianna clamps, elevated, and the underlying rectus muscles dissected off both bluntly and with the aid of the Mayos. The peritoneum was grasped and elevated with hemostats and then entered sharply with Metzenbaum scissors. This incision was extended bluntly. The bladder blade was inserted, then the lower uterine segment was incised in a transverse fashion with the scalpel. The uterine incision was extended bluntly. The bladder blade was removed and the infants head was brought to the hysterotomy. Fundal pressure applied and the delivered atraumatically. The cord was clamped and cut after 60 sec and the was handed off to the waiting provider. Cord segment and cord blood were obtained, then the placenta was removed with gentle uterine massage and cord traction. The uterus was exteriorized and cleared of all clots and debris with moist laparotomy sponges. The uterine incision was repaired with 0 chromic in a running locked fashion. A second layer of 0 chromic was used in an imbricating fashion. The posterior cul-de-sac was cleared of all clots and debris with irrigation and suction, and the uterus was returned to the abdomen. The gutters were cleared of all clots. The peritoneum was reapproximated with running, nonlocked suture of 2-0 Vicryl. The rectus muscles were carefully examined and hemostatic after cautery as needed. The fascia was reapproximated with 0 Vicryl in a running fashion. The subcutaneous tissues was irrigated. The subcutaneous tissue was reapproximated with interrupted sutures of 2-0 Vicryl, and the skin was closed with 4-0 monocryl in a subcuticular fashion. Mastisol, steri-strips, and dressing were then applied. The patient tolerated the procedure well. Sponge, lap, needle, and instrument counts were correct at the end of the procedure. The patient was taken to the recovery room in [place]ul Alonzo MD
--- NOTE | 2024-07-11 11:27 | ANESTHESIA POST OP EVALUATION ---
Anesthesia Post Eval Post Anesthesia Eval Vitals: Last Vital Signs Temp 36.6 C 07/11/24 09:40 Pulse 74 07/11/24 09:50 Resp 18 07/11/24 09:50 BP 122/75 07/11/24 09:50 Pulse Ox 98 07/11/24 09:50 CV Function Including HR & BP: Stable Pain Control: Satisfactory Nausea & Vomiting: Negative Mental Status: Baseline Respiratory Status: Airway Patent Hydration Status: Satisfactory Anesthesia Complications: None
[2024-07-11] MEDS ORDERED: KETOROLAC 30 MG/ML VIAL IVP SCH (12:00)
[2024-07-11] MEDS: fentaNYL 100 MCG/2 ML VIAL IVP PRN (13:35)
[2024-07-11] MEDS: KETOROLAC 30 MG/ML VIAL IVP SCH (15:14)
[2024-07-11] MEDS: ACETAMINOPHEN 500 MG TABLET PO ONE (16:23)
[2024-07-11] MEDS: ACETAMINOPHEN 325 MG TABLET PO PRN (19:20)
[2024-07-11] MEDS: DOCUSATE SODIUM 100 MG CAPSULE PO SCH (21:36)
[2024-07-11] MEDS: NIFEdipine ER 30 MG TABLET PO SCH (21:36)
[2024-07-12] MEDS: LACTATED RINGERS 1,000 ML IV SCH (02:23)
[2024-07-12] MEDS ORDERED: IBUPROFEN 600 MG TABLET PO ONE (03:11)
[2024-07-12] MEDS: IBUPROFEN 600 MG TABLET PO SCH (03:47)
[2024-07-12 05:45] LABS: HCT - HEMATOCRIT 31.5 % (37.0-47.0); HGB - HEMOGLOBIN 9.9 g/dL (12.0-16.0); MEAN CORPUSCULAR HEMOGLOBIN 24.1 pg (27.0-31.0); MEAN CORPUSCULAR HGB CONC 31.4 g/dL (32.0-36.0); MEAN CORPUSCULAR VOLUME 76.6 fL (81.0-99.0); RED BLOOD COUNT 4.11 10^6/uL (4.20-5.40); RED CELL DISTRIBUTION WIDTH 16.8 % (12.0-15.0)
[2024-07-12 05:55] LABS: ALBUMIN 3.3 g/dL (3.2-5.5); ALBUMIN/GLOBULIN RATIO 1.1 (1.0-2.2); BILIRUBIN,TOTAL 0.3 mg/dL (0.2-1.0); CALCIUM 8.8 mg/dL (8.5-10.3); TOTAL PROTEIN 6.3 g/dL (6.4-8.9)
[2024-07-12 06:04] LABS: WHITE BLOOD COUNT 8.8 x10^3/uL (4.8-10.8)
[2024-07-12] MEDS: ENOXAPARIN 40 MG/0.4 ML SYRINGE SUBQ SCH (08:19)
--- NOTE | 2024-07-12 12:05 | PROVIDER PROGRESS NOTE ---
Subjective Prog Note Date Prog Note Date: 07/12/24 Prog Note Time: 11:55 Subjective Pt reports feeling: Improved Subjective: POD #1 s/p 1' LTCS for intolerance of labor. Surgery was uncomplicated. Yesterday afternoon and overnight, pain control required PRN IV Fentanyl for breakthrough pain. She reports pain is better today. She has been up and ambulating, and she has voided since catheter removed. Lochia has been decreasing. No passage of flatus or stool yet but tolerating a regular diet without nausea or vomiting. Baby is at the bedside. She is latching but adding formula supplementation. Current Medications Current Medications Current Medications: Current Medications Generic Name Dose Route Start Last Admin Trade Name Freq PRN Reason Stop Dose Admin Acetaminophen 650 mg 07/11/24 15:00 07/12/24 08:18 Acetaminophen 325 Mg Tablet PO 650 mg Q6H PRN Administration Mild Pain or Fever>38C(100.4F) Protocol Carboprost Tromethamine 250 mcg 07/08/24 14:28 Carboprost Tromethamine 250 Mcg/Ml Vial IM 07/13/24 14:28 Q15M PRN Step 4: Hemorrhage protocol Diphenhydramine HCl 12.5 - 25 mg 07/11/24 02:19 Diphenhydramine Inj 50 Mg/Ml Vial IVP Q6HR PRN ITCHING Docusate Sodium 200 mg 07/11/24 21:00 07/11/24 21:36 Docusate Sodium 100 Mg Capsule PO 200 mg BID OLIVIA Administration Enoxaparin Sodium 40 mg 07/12/24 09:00 07/12/24 08:19 Enoxaparin 40 Mg/0.4 Ml Syringe SUBQ 40 mg DAILY OLIVIA Administration Fentanyl 100 mcg 07/11/24 12:39 07/11/24 19:19 Fentanyl 100 Mcg/2 Ml Vial IVP 100 mcg Q2HR PRN Administration Severe Pain (Level 7-10) Hydralazine HCl 5 - 20 mg 07/08/24 14:28 Hydralazine Inj 20 Mg/Ml Vial IVP Q20M PRN SBP >160 or DBP >110 Protocol Hydralazine HCl 10 mg 07/08/24 14:28 Hydralazine Inj 20 Mg/Ml Vial IVP 07/13/24 14:28 .ONCE PRN Step 9 of Labetalol protocol Protocol Hydralazine HCl 10 mg 07/11/24 09:35 Hydralazine Inj 20 Mg/Ml Vial IVP .ONCE PRN SBP> or= 160 OR DBP> or= 110 Protocol Hydralazine HCl 5 - 20 mg 07/11/24 09:35 Hydralazine Inj 20 Mg/Ml Vial IVP Q20M PRN SBP> or= 160 OR DBP> or= 110 Protocol Tranexamic Acid 1,000 mg in 100 mls @ 500 mls/hr 07/11/24 09:41 Tranexamic 1,000 Mg/100ml-Nacl IV PRN PRN Uterine atony/ Uterine Bleed Ibuprofen 600 mg 07/12/24 10:00 07/12/24 03:47 Ibuprofen 600 Mg Tablet PO 600 mg Q6HR OLIVIA Administration Labetalol HCl 20 - 80 mg 07/08/24 14:28 Labetalol 20 Mg/4 Ml Syringe IVP Q10M PRN SBP >160 or DBP >110 Protocol Labetalol HCl 20 mg 07/08/24 14:28 Labetalol 20 Mg/4 Ml Syringe IVP 07/13/24 14:28 .ONCE PRN Step 9 of nifedipine protocol Protocol Labetalol HCl 40 mg 07/08/24 14:28 Labetalol 20 Mg/4 Ml Syringe IVP 07/13/24 14:28 .ONCE PRN Step 9 of hydrALAZine protocol Protocol Labetalol HCl 20 - 40 mg 07/11/24 09:35 Labetalol 20 Mg/4 Ml Syringe IVP Q10M PRN SBP> or= 160 OR DBP> or= 110 Protocol Labetalol HCl 20 mg 07/11/24 09:35 Labetalol 20 Mg/4 Ml Syringe IVP .ONCE PRN SBP> or= 160 OR DBP> or= 110 Protocol Labetalol HCl 20 - 80 mg 07/11/24 09:35 Labetalol 20 Mg/4 Ml Syringe IVP Q10M PRN SBP> or= 160 OR DBP> or= 110 Protocol Metoclopramide HCl 10 mg 07/11/24 02:19 Metoclopramide 10 Mg/2 Ml Vial IVP Q6HR PRN Nausea / Vomiting Nalbuphine HCl 2.5 - 5 mg 07/11/24 02:19 Nalbuphine 10 Mg/Ml Amp IVP Q4H PRN ITCHING Naloxone HCl 0.4 mg 07/11/24 09:35 Naloxone 0.4 Mg/Ml Vial IVP .ONCE PRN Opioid overdose Nifedipine 10 - 20 mg 07/11/24 09:35 Nifedipine 10 Mg Capsule PO Q20M PRN SBP> or= 160 OR DBP> or= 110 Protocol Nifedipine 60 mg 07/11/24 21:00 07/11/24 21:36 Nifedipine Er 30 Mg Tablet PO 60 mg DAILY OLIVIA Administration Ondansetron HCl 4 mg 07/08/24 14:29 Ondansetron Odt 4 Mg Tablet TL Q4HR PRN Nausea / Vomiting Ondansetron HCl 4 mg 07/11/24 02:19 Ondansetron 4 Mg/2 Ml Vial IVP Q6HR PRN Nausea / Vomiting Oxycodone HCl 5 mg 07/11/24 09:35 07/12/24 06:11 Oxycodone 5 Mg Tablet PO 5 mg Q4HR PRN Administration Severe Pain 6 -10 Sodium Chloride 10 ml 07/08/24 17:00 07/12/24 05:47 Sodium Chloride Flush 0.9% 10 Ml Syringe IVP Not Given 0100,0900,1700 [facility] Sodium Chloride 10 ml 07/08/24 14:29 Sodium Chloride Flush 0.9% 10 Ml Syringe IVP PRN PRN NEEDED PER PROVIDER ORDERS Objective Vital Signs/Intake & Output Reviewed Vital Signs: Yes Vital Signs: Vital Signs x48h Temp Pulse Resp BP Pulse Ox 07/12/24 09:00 36.2 C L 69 16 126/76 100 Intake & Output: Intake & Output 07/09/24 07/10/24 07/11/24 07/12/24 23:59 23:59 23:59 23:59 Intake Total 1253 / 1253 1006 / 1006 6360 / 6360 580 / 580 Output Total 800 / 800 1850 / 1850 3450 / 3450 1800 / 1800 Balance 453 / 453 -844 / -844 2910 / 2910 -1220 / -1220 Objective General Appearance: positive No acute distress and Alert Respiratory: positive No respiratory distress and Breath sounds nml Cardiovascular: positive Regular rate & rhythm and No murmur Abdomen: positive Tenderness (Appropriate for postop) and Other (Fundus firm and mildly tender at Umb) Skin: positive Color nml, Warm and Other (Incision: dressing in place with no discharge present) Extremities: positive Non-tender, Full ROM, Nml appearance and Pedal edema (Trace) Neurologic/Psychiatric: positive Oriented x3, Motor nml, Sensation nml and Mood/affect nml Lab Results 07/12/24 05:35 07/12/24 05:35 Other Labs: Lab Results x24hrs 07/12/24 07/08/24 Range/Units 05:35 14:19 WBC 8.8 (4.8-10.8) x10^3/uL RBC 4.11 L (4.20-5.40) 10^6/uL Hgb 9.9 L (12.0-16.0) g/dL Hct 31.5 L (37.0-47.0) % MCV 76.6 L (81.0-99.0) fL MCH 24.1 L (27.0-31.0) pg MCHC 31.4 L (32.0-36.0) g/dL RDW 16.8 H (12.0-15.0) % Plt Count (130-450) 10^3/uL Sodium 137 (135-145) mmol/L Potassium 4.0 (3.5-4.5) mmol/L Chloride 105 (101-111) mmol/L Carbon Dioxide 25 (21-32) mmol/L Anion Gap 7.0 (6-13) BUN 12 (6-20) mg/dL Creatinine 1.0 (0.6-1.3) mg/dL Estimated GFR (MDRD) 74 L (>89) Glucose 115 H (74-104) mg/dL Calcium 8.8 (8.5-10.3) mg/dL Total Bilirubin 0.3 (0.2-1.0) mg/dL AST 12 (10-42) IU/L ALT 8 L (10-60) IU/L Alkaline Phosphatase 107 (42-121) IU/L Total Protein 6.3 L (6.4-8.9) g/dL Albumin 3.3 (3.2-5.5) g/dL Globulin 3.0 (2.1-4.2) g/dL Albumin/Globulin Ratio 1.1 (1.0-2.2) Crossmatch IS Only See Detail Assessment/Plan Problem List (1) care following delivery: Impression: POD #1 s/p primary for intolerance of labor. Overall, doing well and healing appropriately postop. - Attempt pain mgmt with oral pain meds only today. - Cont to encourage ambulation and IS use - Lovenox 40 mg SQ daily added this morning for VTE prophylaxis. Will continue until discharge. - Discussed possible discharge home tomorrow if BP controlled and recovery well postop. - Letter provided recommending family be allowed to remain local until at least 2 wks . (2) Pre-eclampsia in third trimester: Impression: Patient started on Procardia XL 30 mg 07/11 pm and still with elevated BP's last evening. Procardia increased to 60 mg with last night's dose, and BP's today wnl. AM preE labs normal, and no evidence of severe features at this time. Cont with titration of BP medication as needed. (3) Thrombocytopenia: (4) Advanced maternal age (AMA), 40 years or greater: (5) Sickle cell trait: (6) Alpha thalassemia:
--- NOTE | 2024-07-12 12:13 | Discharge Summary ---
"Discharge Summary Admit Date: 07/08/24 Discharge Date: 07/13/24 Discharging Provider: Dr. Berenice Alonzo Primary Care Provider: None Code Status: Attempt Resuscitation Discharge Facility Name: [facility] DIAGNOSES Admission Diagnoses: Term , 39+5 wks Advanced maternal age, third trimester Pre-eclampsia without severe features, third trimester Thrombocytopenia Sickle Cell Trait Alpha thalassemia trait Uterine fibroids Discharge Diagnoses with Status of Each Condition: resolved, now s/p primary Pre-eclampsia without severe features, now Thrombocytopenia - no change Sickle Cell Trait - no change Alpha thalassemia trait - no change Uterine fibroid - no change HPI History of Present Illness: HPI: Esperanza is a 43 yo at 39w5d who is admitted for IOL in the setting of AMA. Reports overall feeling well today. She reports very irregular contractions, denies loss of fluid, vaginal bleeding. Reports good movement. She denies headache, vision changes, upper abdominal pain. monitoring form, copied from record: LMP: 09/25/2023 KAI by LMP: 07/01/2024 US: 12/12/2023 @ 9+6 NOT c/w LMP FINAL KAI: 07/10/2024 by US Problems: Cervical Incompetence: Delivery at [facility] at 20 weeks. Cervical shortening prolapsed membranes, developed chorio and then PPROM. Labor augmented with misoprstol, placental path confirmed chorio. - s/p Kat cerclage on 01/13; Removed at 36 weeks. AMA: -Aspirin to start between 12-16 weeks. - [id number] neg, female - MFM recommmends weekly NST/BPP @ 36wk, ordered. Thrombocytopenia - Plt 88 on 01/01/25 -> 84 on 05/04/24. Repeat ordered 05/21. Pre- Weight:197.4 BMI: 35.66 Blood type: AB+ Rh: + Antibody: ordered 05/06 CBC: PLT 88 HCT 32.6 HGB 10.6 RUB: 05/04 immune VZV: 05/04 NOT immune HBsA/10 neg HepC: neg RPR/AB-EIA: NR HIV: 05/04 NR PAP:09/28/22 normal GC/CT: Negative HSV:denies in self and partner Genetic testing: Ordered 12/03 Covid: vaccinated RSV 05/21/24 mls FAS: Dec. 3 at M ([facility]) EFW 55%tile. Placenta posterior. Prominent maternal uterine vasculature vs placental venous sinus extending to internal os. Noted. Normal cervical length. Cerclage in Situ. Anterior right lateral exophytic fibroid (size not given) Growth US 04/21/24 @ 28w4d EFW 47%tile, posterior placenta, normal VALERIA. No vasa previa seen. 50gm OGCT: 128 3HR GTT: TDAP:04/23 Breast Pump:04/23 3rd trimester CBC: 10.9/34.0 84 RPR: NR GBS: Negative at [facility] Delivery plan: IOL scheduled for 07/08 at 8am Contraception: declines CONSULTS | PROCEDURES Consultations: None Procedures: Primary low transverse , epidural then spinal anesthesia HOSPITAL COURSE Hospital Course: Patient was admitted for induction of labor, which was initiated with a ripening balloon. This was later removed when it did not pass spontaneously. Cervix was 3-4 cm dilated at that time but very difficult to reah. Plan was then to start misoprostol. However, FHT with episode prolonged (2-3 min) decels to 60s. Pitocin was started then needed to be stopped due to heart concerns. She continued to have mild, spontaneous contractions. As they spaced and FHT was more reassuring, Pitocin was restarted and continued. She then SROM'd and requested epidural. BP's then decreased to normal range (had been previously 140-150s/80s) and heart tracing was notable for decreased variability and late decels. These would improve with ephedrine to help bring BP back up (received 3 doses total). The prolonged decels then started to recur, and Pitocin stopped. Cvx reached 5/80/-2, but contractions spaced again off the Pitocin, and cat 2 tracing precluded restart of the Pitocin. At that time, was recommended for intolerance of labor. Her BP's during labor were as high as 150/80s, and she received nifedipine IR 10 mg x 1 then about 24 hrs later nifedipine XR 30 mg x 1. There were no BPs or labs consistent with preE with severe features during labor or course. Postop, she did well. Nifedipine was increased to 60 mg XL on the night of surgery. BPs were normal range thereafter. She was discharged home on POD #2 ambulating, passing flatus, controlling pain with oral meds, and voiding. The baby remained at the bedside and was also doing well at time of discharge. ALLERGIES Allergies Allergy/AdvReac Type Severity Reaction Status Date / Time Quinolones Allergy Itching Verified 07/10/24 09:43 MEDICATIONS Ambulatory Orders Medication Instructions Recorded Confirmed acetaminophen 325 mg capsule 325 - 650 mg (1 - 2 x 325 mg) PO 07/13/24 Q4H PRN pain #60 caps docusate sodium 100 mg capsule 100 mg PO BID PRN constipation #60 07/13/24 (Colace) caps ibuprofen 600 mg tablet 600 mg PO Q6H PRN pain #30 tabs 07/13/24 nifedipine 30 mg tablet,extended 30 mg PO QDAY #30 tabs 07/13/24 release oxycodone 5 mg tablet 5 mg PO Q4H PRN pain #10 tabs 07/13/24 polyethylene glycol 3350 17 17 g PO QDAY PRN constipation #510 07/13/24 gram/dose oral powder (Miralax) grams simethicone 80 mg chewable tablet 80 mg PO QID PRN Abdominal Pain 07/13/24 #30 tabs PHYSICAL EXAM AT DISCHARGE Vital Signs: Vital Signs x48h Temp Pulse Resp BP 07/13/24 09:00 36.8 C 80 18 125/68 General Appearance: positive No acute distress and Alert Respiratory: positive No respiratory distress and Breath sounds nml Cardiovascular: positive Regular rate & rhythm and No murmur Abdomen: positive Tenderness (Appropriate postop) and Other (Firm at umb; mild ttp) Skin: positive Color nml, No rash and Other (Incision: steri-strips clean, dry, intact) Extremities: positive Non-tender, Full ROM and Pedal edema (1+) Neurologic/Psychiatric: positive Oriented x3, Motor nml, Sensation nml and Mood/affect nml LABS 07/12/24 05:35 07/12/24 05:35 QUALITY (Female Hip Fx Only) Was patient sent home on osteoporosis medication?: No FOLLOW UP Follow Up: Call [facility] to schedule BP check in 2 days and incision check in 1 wk TIME SPENT Time Spent in Discharge (Minutes): 20 Discharge Plan Discharge Patient Disposition: 06 Home Health Service Condition: Good Prescriptions: New simethicone 80 mg Tablet,Chewable 80 mg PO QID PRN (Reason: Abdominal Pain) Qty: 30 0RF Continued ibuprofen 600 mg tablet 600 mg PO Q6H PRN (Reason: pain) Qty: 30 1RF docusate sodium [Colace] 100 mg capsule 100 mg PO BID PRN (Reason: constipation) Qty: 60 1RF polyethylene glycol 3350 [Miralax] 17 gram/dose powder 17 g PO QDAY PRN (Reason: constipation) Qty: 510 0RF oxycodone 5 mg tablet 5 mg PO Q4H PRN (Reason: pain) Qty: 10 0RF acetaminophen 325 mg capsule 325 - 650 mg PO Q4H PRN (Reason: pain) Qty: 60 1RF nifedipine 30 mg tablet extended release 30 mg PO QDAY Qty: 30 2RF Activity Restrictions: Additional Comments Activity Restrictions/Additional Instructions: nothing in vagina for 6 week. no lifting more than 15 pounds for 6 weeks. OK to shower, no bath for 2 weeks. check blood pressure at home. call if bps are over 150/100 more than once, significant headache, or very heavy bleeding. Constipation is common. Be sure to eat lots of fruits and veggie, drink lots of water. Coffee can be helpful if you like it and 1 cup is fine for baby. Diet: Regular Print Language: Syrian Patient Instructions:"
[2024-07-13 01:08] VITALS: O2SAT 99
[2024-07-13] MEDS ORDERED: SIMETHICONE CHEW 80 MG TABLET PO ONE (02:07)
[2024-07-13] MEDS: SIMETHICONE CHEW 80 MG TABLET PO PRN (02:42)
[2024-07-13 16:56] VITALS: BP 130/70; TEMP 98.4
--- NOTE | 2024-07-13 16:57 | Labor Flowsheet ---
Labor Flowsheet Datetime Report Generated by CPN: 07/13/2024 16:57 Datetime: 07/11/2024 08:04 Patient Care Comments: to or via FBP bed,accompanied byRN and photo mask pattern generator Datetime: 07/11/2024 07:49 VITAL SIGNS NBP Sys/Rica/Mean (mmHg): 149 : 98 : 108 Pulse: 83 SpO2 (%): 100 COMMUNICATION Communication: RN at Bedside; Provider at Bedside Communication Comments: surgery consent signed and wittnessed LaborFlag: Labor Datetime: 07/11/2024 07:40 ASSESSMENT A Monitor Mode: External US FHR Baseline Rate : 175 FHR Baseline Changes: No Baseline Change Variability: Minimal - Undetectable to <=5 bpm Accelerations: 15X15 Decelerations: Variable Category: Category I Oxygen Method: Room Air Datetime: 07/11/2024 07:15 Comments: pt getting prep'd for surgery Datetime: 07/11/2024 07:13 Stage of : Labor UTERINE ACTIVITY Monitor Mode: External Frequency (min): rare Quality: Mild Pattern: Normal: <= 5 Contractions in 10 Minutes Resting Tone (Palpate): Relaxed Contraction Comments: pitocin off,preparing for c/s Membrane Status: Ruptured Membranes Rupture Method: Spontaneous Amniotic Fluid Color: Light Meconium MATERNAL ASSESSMENT Level of Consciousness: Alert DTR's/Clonus: DTRs 2+ Headache: Denies Breath Sounds, Left: Clear and Equal Breath Sounds, Right: Clear and Equal Nausea/Vomiting: Denies RUQ Epigastric Pain: Denies Consults: Anesthesia TEACHING Instructional Method: Family/Support Person Instructed Plan of Care: Plan of Care Discussed; C/S Delivery Notification Reason: Other Datetime: 07/11/2024 07:10 Actions for Decelerations: Side to Side Datetime: 07/11/2024 07:08 Patient Position/Activity: Right Lateral Datetime: 07/11/2024 06:55 Duration (sec): 40-60 Datetime: 07/11/2024 06:41 Strip Reviewed by: NORMA Blankenship Provider Notified (Name): Dr Alonzo Datetime: 07/11/2024 05:56 VAGINAL EXAM Dilatation (cm): 5.0 Effacement (%): 80 Station: -1 Exam by: NORMA Blankenship Vaginal Bleeding: None Cervix, Consistency: Soft Cervix, Position: Midposition Datetime: 07/11/2024 05:54 Hygiene: Sonal Care I/O Interventions: Lugo Cath Inserted Datetime: 07/11/2024 04:09 Pain Coping: Sleeping Datetime: 07/11/2024 03:15 Pitocin Checklist: No More than 2 Variable Decelerations > 60 Seconds in Duration and decreasing >6 0 bpm in 30 minutes; No More than 5 Uterine Contractions in 10 Minutes for any 20 Minute Interval; Ut erus Palpates Soft between Contractions Datetime: 07/11/2024 03:11 MEDICATIONS Pitocin (milliunits): Discontinued Datetime: 07/11/2024 03:07 PATIENT CARE IV/Blood Work: IV Bolus Started Datetime: 07/11/2024 02:48 Anesthesia Comments: bolus dose by [employer] Datetime: 07/11/2024 02:24 Monitor Interventions for UA: [place] Adjusted Datetime: 07/11/2024 02:01 Respirations: 18 Temperature (C): 36.8 Temperature Route: Oral Datetime: 07/11/2024 01:50 Epidural Procedure: Test Dose Datetime: 07/11/2024 01:30 PROCEDURE TIME OUT Procedure Type: epidural Datetime: 07/11/2024 01:26 Procedure Verify: Correct Patient Position Epidural Positioning: Sitting Datetime: 07/11/2024 01:12 ANESTHESIA Anesthesia Plans: Epidural Datetime: 07/10/2024 21:35 Membranes Ruptured Date/Time: 07/10/2024 20:26 Cervical Ripening Agents: [place] Balloon Datetime: 07/10/2024 20:32 Amniotic Fluid Amount: Large Datetime: 07/10/2024 20:26 Amniotic Fluid Odor: Normal Datetime: 07/10/2024 17:48 Monitor Interventions for FHR: Ultrasound Adjusted Datetime: 07/10/2024 16:27 Pain Assessment Comments: VO per Dr. Clinton for pt to shower if she would like to help with pain man gement Datetime: 07/10/2024 15:53 PAIN Pain Scale: 8 Pain Presence: Intermittent Pain Type: Contraction Pain Location: Abdomen Datetime: 07/10/2024 09:16 Analgesics/Sedatives: Fentanyl (mcg) @ 100 Medication Comments: per VO per Dr. Clinton per Pt request for SVE and potential AROM. Datetime: 07/10/2024 00:53 Provider Reviewed Strip: Yes Datetime: 07/09/2024 22:01 Magnesium/Antihypertensives: Procardia PO (mg) @ 10mg given Datetime: 07/09/2024 20:43 Vaginal Exam Comments: No change Datetime: 07/09/2024 15:01 Comfort Measures: Breathing/Relaxation Datetime: 07/09/2024 12:00 Pain Relief Measures: Comfort Measures Datetime: 07/09/2024 01:53 Pain Goal: 5 Datetime: 07/09/2024 00:30 Unit Routine: Unit Personnel Labor/Induction: Cervical Ripening; Activity
[2024-07-13] MEDS: VARICELLA VACCINE LIVE/PF 1,350 UNIT/0.5 ML VIAL SUBQ ONE (18:31)
== END 2024-07-13 15:00 | disposition home health service (06) | DRG 787 ==
LOC: WFO 13:45 → FBP 13:45
PROVIDERS: ADMIT Obstetrics & Gynecology; ATTEND Obstetrics & Gynecology
DX: D69.6 Thrombocytopenia, unspecified; O76 Abnormality in fetal heart rate and rhythm complicating labor and delivery; D57.3 Sickle-cell trait; O34.13 Maternal care for benign tumor of corpus uteri, third trimester; O32.4XX0 Maternal care for high head at term, not applicable or unspecified; O14.04 Mild to moderate pre-eclampsia, complicating childbirth; Z37.0 Single live birth; O99.12 Other diseases of the blood and blood-forming organs and certain disorders involving the immune mechanism complicating childbirth; D25.9 Leiomyoma of uterus, unspecified; Z3A.39 39 weeks gestation of pregnancy; O99.02 Anemia complicating childbirth; Z87.59 Personal history of other complications of pregnancy, childbirth and the puerperium